=== PATIENT | male | born 1955 | race Caucasian/White ===

== ENCOUNTER 2019-08-13 08:47 | Emergency (ER) | payer MEDICARE, BC ==
--- NOTE | 2019-08-13 08:52 | EDM.PDOC ---
ED HPI GENERAL MEDICAL PROBLEM - General Stated Complaint: COLON ISSUES Time Seen by Provider: 08/13/19 08:51 Source of Information: Reports: Patient History Limitations: Reports: No Limitations - History of Present Illness INITIAL COMMENTS - FREE TEXT/NARRATIVE: HISTORY AND PHYSICAL: History of present illness: Patient is a 64-year-old male who presents to the emergency room with complaints of rectal bleeding. He states this morning after using the bathroom he had noticed some blood on the toilet tissue. He states he does have a long- standing history of constipation due to a pelvic floor dysfunction. Does strain frequently to have a bowel movement. Today he noticed the bleeding and was concerned he had a hemorrhoid, came to the emergency room in hopes of having this removed. He reports he is asymptomatic and offers no other concerns or complaints. Patient denies any fever, chills, headache, change in vision, syncope or near syncope. Denies any chest pain, back pain, shortness of breath or cough. Denies any abdominal pain, nausea, vomiting, diarrhea, constipation or dysuria. Has not noted any blood in urine or stool. Patient has been eating and drinking appropriately. Review of systems: As per history of present illness and below otherwise all systems reviewed and negative. Past medical history: As per history of present illness and as reviewed below otherwise noncontributory. Surgical history: As per history of present illness and as reviewed below otherwise noncontributory. Social history: See social history for further information Family history: As per history of present illness and as reviewed below otherwise noncontributory. Physical exam: General: Well-developed and well-nourished 64-year-old male. Alert and oriented. Nontoxic appearing and in no acute distress. HEENT: Atraumatic, normocephalic, pupils equal and reactive bilaterally, negative for conjunctival pallor or scleral icterus, mucous membranes moist, trachea midline. No drooling or trismus noted. No meningeal signs. No hot potato voice noted. Lungs: Clear to auscultation, breath sounds equal bilaterally, chest nontender. Heart: S1S2, regular rate and rhythm without overt murmur Abdomen: Soft, nondistended, nontender. Negative for masses or hepatosplenomegaly. Negative for costovertebral tenderness. Pelvis: Stable nontender. Genitourinary: Deferred. Rectal: This was done with consent and a smoking tobacco packing machine hand at the bedside. Three hemorrhoids are noted at 11-2 o'clock position. These are not thrombosed, no active bleeding is noted. Good rectal tone. Hemoccult negative. Skin: Intact, warm, dry. No lesions or rashes noted. Extremities: Atraumatic, moves all extremities per self without difficulty or deficits, negative for cords or calf pain. Neurovascular unremarkable. Neuro: Awake, alert, oriented. Cranial nerves II through XII unremarkable. Cerebellum unremarkable. Motor and sensory unremarkable throughout. Exam nonfocal. Notes: Was able to get patient an appointment for tomorrow with Dr Coyle at 1pm for follow up care. Dr Greer did look at the hemorrhoids, agrees with plan of care. Medication and supportive care measures were reviewed and discussed. Voices understanding and is agreeable to plan of care. Denies any further questions or concerns at this time. Diagnostics: None Therapeutics: None Prescription: Lidocaine/Hydrocortisone Gel Impression: Hemorrhoid Plan: 1. Continue to take the Miralax and Stool softener to avoid straining while having a bowel movement. 2. Use the Hydrocortisone Gel and Lidocaine Gel; 1/2 and 1/2 of each medication in the applicator - insert rectally. May use twice daily. 3. Follow up with Dr Coyle, you have an appointment at the [address] [place] [address] at 1pm 4. Return to the ED as needed as discussed. Definitive disposition and diagnosis as appropriate pending reevaluation and review of above. Onset: Today - Related Data Allergies Allergy/AdvReac Type Severity Reaction Status Date / Time No Known Allergies Allergy Verified 08/16/16 23:38 Home Meds: Home Meds Gabapentin [Neurontin] 600 mg PO BID 03/20/15 [History] Aspirin 325 mg PO DAILY 12/02/16 [History] Multivitamin [Multivitamins] 1 tab PO DAILY 12/02/16 [History] Dicyclomine [Bentyl] 20 mg PO QID PRN 08/13/19 [History] Past Medical History HEENT History: Cardiovascular History: Respiratory History: Reports: None Gastrointestinal History: Reports: GERD, Hiatal Hernia Genitourinary History: Reports: None Musculoskeletal History: Reports: Osteoarthritis (left shoulder) Neurological History: Reports: None Other Neuro History: restless leg syndrome Psychiatric History: Reports: None Endocrine/Metabolic History: Reports: None Hematologic History: Reports: None Immunologic History: Reports: None Oncologic (Cancer) History: Reports: None Dermatologic History: Reports: None - Infectious Disease History Infectious Disease History: Reports: Chicken Pox, Measles, Mumps Other Infectious Disease History: childhood - Past Surgical History HEENT Surgical History: Reports: Naso-Sinus Surgery, Oral Surgery, Tonsillectomy Social & Family History - Family History Family Medical History: Noncontributory HEENT: Reports: None Cardiac: Reports: None Respiratory: Reports: None GI: Reports: None - Living Situation & Occupation Living situation: Reports: Single Occupation: Retired ED ROS GENERAL - Review of Systems Review Of Systems: ROS reveals no pertinent complaints other than HPI. ED EXAM, GI/ABD - Physical Exam Exam: See Below (See dictation) Course - Vital Signs Last Recorded V/S: Last Vital Signs Temp 97.3 F 08/13/19 09:03 Pulse 71 08/13/19 09:03 Resp 16 08/13/19 09:03 BP 177/98 H 08/13/19 09:03 Pulse Ox 96 08/13/19 09:03 - Orders/Labs/Meds Orders: Active Orders 24 hr Category Date Time Status Sodium Chloride 0.9% [Normal Saline] 1,000 ml Med 08/13/19 08:59 Active IV STAT Medication Orders Sodium Chloride (Normal Saline) 1,000 mls @ 999 mls/hr IV STAT ONE Stop: 08/13/19 09:59 Meds: Medications Generic Name Dose Route Start Last Admin Trade Name Freq PRN Reason Stop Dose Admin Sodium Chloride 1,000 mls @ 999 mls/hr 08/13/19 08:59 Normal Saline IV 08/13/19 09:59 STAT ONE Discontinued Medications Generic Name Dose Route Start Last Admin Trade Name Freq PRN Reason Stop Dose Admin Sodium Chloride 10 ml 08/13/19 08:59 Saline Flush FLUSH ASDIRECTED PRN Keep Vein Open Sodium Chloride 2.5 ml 08/13/19 08:59 Saline Flush FLUSH ASDIRECTED PRN Keep Vein Open Departure - Departure Time of Disposition: 09:32 Disposition: Home, Self-Care 01 Clinical Impression: Hemorrhoids Qualifiers: Hemorrhoid type: unspecified Qualified Code(s): K64.9 - Unspecified hemorrhoids - Discharge Information Instructions: Hemorrhoids, [id number] Referrals: Elieser Coyle MD [Physician] - 08/14/19 1:00 pm Elsie Lynne MD [Primary Care Provider] - Forms: ED Department Discharge Additional Instructions: The following information is given to patients seen in the emergency department who are being discharged to home. This information is to outline your options for follow-up care. We provide all patients seen in our emergency department with a follow-up referral. The need for follow-up, as well as the timing and circumstances, are variable depending upon the specifics of your emergency department visit. If you don't have a primary care physician on staff, we will provide you with a referral. We always advise you to contact your personal physician following an emergency department visit to inform them of the circumstance of the visit and for follow-up with them and/or the need for any referrals to a consulting specialist. The emergency department will also refer you to a specialist when appropriate. This referral assures that you have the opportunity for follow-up care with a specialist. All of these measure are taken in an effort to provide you with optimal care, which includes your follow-up. Under all circumstances we always encourage you to contact your private physician who remains a resource for coordinating your care. When calling for follow-up care, please make the office aware that this follow-up is from your recent emergency room visit. If for any reason you are refused follow-up, please contact the Emergency Department at and asked to speak to the emergency department charge nurse. Primary Care [address] [place] [address] [id number] [address] Specialty Care - General Surgery [facility] [address] [place] [address], [address] [place] [address] 1. Continue to take the Miralax and Stool softener to avoid straining while having a bowel movement. 2. Use the Hydrocortisone Gel and Lidocaine Gel; 1/2 and 1/2 of each medication in the applicator - insert rectally. May use twice daily. 3. Follow up with Dr Coyle, you have an appointment at the [address] [place] [address] at 1pm. Please arrive to [address] [place] [address] 15 minutes before appointment. Please bring photo ID and insurance cards. Dr. Coyle's office is on the third floor. 4. Return to the ED as needed as discussed. - My Orders Last 24 Hours: My Active Orders 08/13/19 08:59 Sodium Chloride 0.9% [Normal Saline] 1,000 ml IV STAT - Assessment/Plan Last 24 Hours: My Active Orders 08/13/19 08:59 Sodium Chloride 0.9% [Normal Saline] 1,000 ml IV STAT
[2019-08-13] MEDS ORDERED: Sodium Chloride 0.9% 10 ML Syringe FLUSH PRN (08:59)
[2019-08-13] MEDS ORDERED: Sodium Chloride 0.9% 2.5 ML Syringe FLUSH PRN (08:59)
[2019-08-13] MEDS ORDERED: Sodium Chloride 0.9% 1,000 ML IV ONE (08:59)
[2019-08-13 09:48] VITALS: BP 160/64; PULSE 64
== END 2019-08-13 09:46 | disposition home or self-care (01) ==
LOC: MW.ED 08:47
DX: K64.9 Unspecified hemorrhoids (principal); Z79.82 Long term (current) use of aspirin
CPT/HCPCS: 99282; 99283

== ENCOUNTER 2020-02-28 09:07 | Observation (INO) | payer MEDICARE, BC ==
[2020-02-28] MEDS ORDERED: Sodium Chloride 0.9% 1,000 ML IV ONE (09:10)
[2020-02-28] MEDS ORDERED: Sodium Chloride 0.9% 2.5 ML Syringe FLUSH PRN ×2 (09:10)
[2020-02-28] MEDS ORDERED: Sodium Chloride 0.9% 10 ML Syringe FLUSH PRN (09:10)
--- NOTE | 2020-02-28 09:12 | EDM.PDOC ---
ED HPI GENERAL MEDICAL PROBLEM - General Stated Complaint: WEAKNESS Time Seen by Provider: 02/28/20 09:09 - History of Present Illness INITIAL COMMENTS - FREE TEXT/NARRATIVE: History of present illness: Patient presents with generalized weakness that is been going on since last week on Monday. He relates he has had several episodes of black stool he recently had a colonoscopy which was normal in [place] but they did not do an upper GI. He denies being on any blood thinners she has not had this kind of problem before she states his weakness is generalized there is no focal weakness he just feels like he does not have much energy at all. Nothing seems to make it better or worse [] Review of systems: As per history of present illness and below otherwise all systems reviewed and negative. Past medical history: As per history of present illness and as reviewed below otherwise noncontributory. Surgical history: As per history of present illness and as reviewed below otherwise noncontributory. Social history: No reported history of drug or alcohol abuse. Family history: As per history of present illness and as reviewed below otherwise noncontributory. Physical exam: HEENT: Atraumatic, normocephalic, pupils reactive, negative for conjunctival pallor or scleral icterus, mucous membranes moist, throat clear, neck supple, nontender, trachea midline. Lungs: Clear to auscultation, breath sounds equal bilaterally, chest nontender. Heart: S1S2, regular, negative for clicks, rubs, or JVD. Abdomen: Soft, nondistended, nontender. Negative for masses or hepatosplenomegaly. Negative for costovertebral tenderness. Pelvis: Stable nontender. Genitourinary: Deferred. Rectal: There are external and internal hemorrhoids that are nontender no obvious bleeding rectum was empty Hemoccult positive Extremities: Atraumatic, negative for cords or calf pain. Neurovascular unremarkable. Neuro: Awake, alert, oriented. Cranial nerves II through XII unremarkable. Cerebellum unremarkable. Motor and sensory unremarkable throughout. Exam nonfocal. Diagnostics: [] Therapeutics: [] Impression: GI bleed, generalized weakness [] Plan: We will obtain some labs give a fluid bolus and reassess the patient given a dose of 80 mg of Protonix [] Definitive disposition and diagnosis as appropriate pending reevaluation and review of above. - Related Data Allergies Allergy/AdvReac Type Severity Reaction Status Date / Time No Known Allergies Allergy Verified 02/28/20 09:27 Home Meds: Home Meds Gabapentin [Neurontin] 600 mg PO TID 03/20/15 [History] Aspirin 81 mg PO DAILY 12/02/16 [History] Multivitamin [Multivitamins] 1 tab PO DAILY 12/02/16 [History] Dicyclomine [Bentyl] 20 mg PO QID PRN 08/13/19 [History] Past Medical History HEENT History: Cardiovascular History: Respiratory History: Reports: None Gastrointestinal History: Reports: GERD, Hiatal Hernia Genitourinary History: Reports: None Musculoskeletal History: Reports: Osteoarthritis (left shoulder) Neurological History: Reports: None Other Neuro History: restless leg syndrome Psychiatric History: Reports: None Endocrine/Metabolic History: Reports: None Hematologic History: Reports: None Immunologic History: Reports: None Oncologic (Cancer) History: Reports: None Dermatologic History: Reports: None - Infectious Disease History Infectious Disease History: Reports: Chicken Pox, Measles, Mumps Other Infectious Disease History: childhood - Past Surgical History HEENT Surgical History: Reports: Naso-Sinus Surgery, Oral Surgery, Tonsillectomy Social & Family History - Family History Family Medical History: Noncontributory HEENT: Reports: None Cardiac: Reports: None Respiratory: Reports: None GI: Reports: None - Caffeine Use Caffeine Use: Reports: None - Living Situation & Occupation Living situation: Reports: Single Occupation: Retired ED ROS GENERAL - Review of Systems Review Of Systems: See Below ED EXAM, GENERAL - Physical Exam Exam: See Below EKG INTERPRETATION EKG Interpretation Comments: Normal sinus rhythm rate of 84 bpm left bundle branch block which is old no ischemic changes read and interpreted by me Course - Vital Signs Text/Narrative:: Patient was Hemoccult positive his hemoglobin is 8.3 he is hemodynamically stable and not on blood thinners. I discussed the case with Dr. Quarles were at 10:45 AM and she will admit the patient to telemetry was given 80 of Protonix in the ED Last Recorded V/S: Last Vital Signs Temp 35.7 C L 02/28/20 09:25 Pulse 90 02/28/20 09:25 Resp BP 155/71 H 02/28/20 09:25 Pulse Ox 99 02/28/20 09:25 - Orders/Labs/Meds Orders: Active Orders 24 hr Category Date Time Status EKG 12 Lead [EKG Documentation Completion] [RC] STAT Care 02/28/20 09:11 Active TYPE AND SCREEN [BBK] Stat Lab 02/28/20 09:38 Received Sodium Chloride 0.9% [Saline Flush] Med 02/28/20 09:10 Active 10 ml FLUSH ASDIRECTED PRN Sodium Chloride 0.9% [Saline Flush] Med 02/28/20 09:10 Active 2.5 ml FLUSH ASDIRECTED PRN Sodium Chloride 0.9% [Saline Flush] Med 02/28/20 09:10 Active 2.5 ml FLUSH ASDIRECTED PRN Saline Lock Insert [OM.PC] Stat Oth 02/28/20 09:10 Ordered Medication Orders Sodium Chloride (Saline Flush) 2.5 ml FLUSH ASDIRECTED PRN PRN Reason: Keep Vein Open Last Admin: 02/28/20 09:40 Dose: 2.5 ml Sodium Chloride (Saline Flush) 10 ml FLUSH ASDIRECTED PRN PRN Reason: Keep Vein Open Last Admin: 02/28/20 09:40 Dose: 10 ml Sodium Chloride (Saline Flush) 2.5 ml FLUSH ASDIRECTED PRN PRN Reason: Keep Vein Open Last Admin: 02/28/20 09:40 Dose: 2.5 ml Labs: Laboratory Tests 02/28/20 02/28/20 02/28/20 Range/Units 09:16 09:38 09:38 WBC 7.63 (4.0-11.0) K/uL RBC 2.67 L (4.50-5.90) M/uL Hgb 8.3 L (13.0-17.0) g/dL Hct 25.1 L (38.0-50.0) % MCV 94.0 (80.0-98.0) fL MCH 31.1 (27.0-32.0) pg MCHC 33.1 (31.0-37.0) g/dL RDW Std Deviation 49.2 (28.0-62.0) fl RDW Coeff of Lottie 15 (11.0-15.0) % Plt Count 406 H (150-400) K/uL MPV 8.60 (7.40-12.00) fL Neut % (Auto) 60.6 (48.0-80.0) % Lymph % (Auto) 26.5 (16.0-40.0) % Chester % (Auto) 8.4 (0.0-15.0) % Eos % (Auto) 3.8 (0.0-7.0) % Baso % (Auto) 0.7 (0.0-1.5) % Neut # (Auto) 4.6 (1.4-5.7) K/uL Lymph # (Auto) 2.0 (0.6-2.4) K/uL Chester # (Auto) 0.6 (0.0-0.8) K/uL Eos # (Auto) 0.3 (0.0-0.7) K/uL Baso # (Auto) 0.1 (0.0-0.1) K/uL Nucleated RBC % 0.0 /100WBC Nucleated RBCs # 0 K/uL INR APTT (18.6-31.3) SEC Sodium 141 (136-148) mmol/L Potassium 3.9 (3.5-5.1) mmol/L Chloride 106 (98-107) mmol/L Carbon Dioxide 26.6 (21.0-32.0) mmol/L BUN 33 H (7.0-18.0) mg/dL Creatinine 1.1 (0.8-1.3) mg/dL Est Cr Clr Drug Dosing 59.61 mL/min Estimated GFR (MDRD) > 60.0 ml/min Glucose 143 H (74-106) mg/dL Calcium 7.9 L (8.5-10.1) mg/dL Total Bilirubin 0.1 L (0.2-1.0) mg/dL AST 14 L (15-37) IU/L ALT 26 (14-63) IU/L Alkaline Phosphatase 87 (46-116) U/L Total Protein 6.2 L (6.4-8.2) g/dL Albumin 3.4 (3.4-5.0) g/dL Globulin 2.8 (2.6-4.0) g/dL Albumin/Globulin Ratio 1.2 (0.9-1.6) Urine Color YELLOW Urine Appearance HAZY Urine pH 6.5 (5.0-8.0) Ur Specific Lincoln 1.020 (1.001-1.035) Urine Protein NEGATIVE (NEGATIVE) mg/dL Urine Glucose (UA) NEGATIVE (NEGATIVE) mg/dL Urine Ketones NEGATIVE (NEGATIVE) mg/dL Urine Occult Blood NEGATIVE (NEGATIVE) Urine Nitrite NEGATIVE (NEGATIVE) Urine Bilirubin NEGATIVE (NEGATIVE) Urine Urobilinogen 0.2 (<2.0) EU/dL Ur Leukocyte Esterase NEGATIVE (NEGATIVE) Urine RBC 0-1 (0-2/HPF) Urine WBC 0-1 (0-5/HPF) Ur Epithelial Cells RARE (NONE-FEW) Amorphous Sediment LIGHT (NEGATIVE) Urine Bacteria FEW (NEGATIVE) 02/28/20 Range/Units 09:38 WBC (4.0-11.0) K/uL RBC (4.50-5.90) M/uL Hgb (13.0-17.0) g/dL Hct (38.0-50.0) % MCV (80.0-98.0) fL MCH (27.0-32.0) pg MCHC (31.0-37.0) g/dL RDW Std Deviation (28.0-62.0) fl RDW Coeff of Lottie (11.0-15.0) % Plt Count (150-400) K/uL MPV (7.40-12.00) fL Neut % (Auto) (48.0-80.0) % Lymph % (Auto) (16.0-40.0) % Chester % (Auto) (0.0-15.0) % Eos % (Auto) (0.0-7.0) % Baso % (Auto) (0.0-1.5) % Neut # (Auto) (1.4-5.7) K/uL Lymph # (Auto) (0.6-2.4) K/uL Chester # (Auto) (0.0-0.8) K/uL Eos # (Auto) (0.0-0.7) K/uL Baso # (Auto) (0.0-0.1) K/uL Nucleated RBC % /100WBC Nucleated RBCs # K/uL INR 0.96 APTT 23.3 (18.6-31.3) SEC Sodium (136-148) mmol/L Potassium (3.5-5.1) mmol/L Chloride (98-107) mmol/L Carbon Dioxide (21.0-32.0) mmol/L BUN (7.0-18.0) mg/dL Creatinine (0.8-1.3) mg/dL Est Cr Clr Drug Dosing mL/min Estimated GFR (MDRD) ml/min Glucose (74-106) mg/dL Calcium (8.5-10.1) mg/dL Total Bilirubin (0.2-1.0) mg/dL AST (15-37) IU/L ALT (14-63) IU/L Alkaline Phosphatase (46-116) U/L Total Protein (6.4-8.2) g/dL Albumin (3.4-5.0) g/dL Globulin (2.6-4.0) g/dL Albumin/Globulin Ratio (0.9-1.6) Urine Color Urine Appearance Urine pH (5.0-8.0) Ur Specific Lincoln (1.001-1.035) Urine Protein (NEGATIVE) mg/dL Urine Glucose (UA) (NEGATIVE) mg/dL Urine Ketones (NEGATIVE) mg/dL Urine Occult Blood (NEGATIVE) Urine Nitrite (NEGATIVE) Urine Bilirubin (NEGATIVE) Urine Urobilinogen (<2.0) EU/dL Ur Leukocyte Esterase (NEGATIVE) Urine RBC (0-2/HPF) Urine WBC (0-5/HPF) Ur Epithelial Cells (NONE-FEW) Amorphous Sediment (NEGATIVE) Urine Bacteria (NEGATIVE) Meds: Medications Generic Name Dose Route Start Last Admin Trade Name Freq PRN Reason Stop Dose Admin Sodium Chloride 2.5 ml 02/28/20 09:10 02/28/20 09:40 Saline Flush FLUSH 2.5 ml ASDIRECTED PRN Administration Keep Vein Open Sodium Chloride 10 ml 02/28/20 09:10 02/28/20 09:40 Saline Flush FLUSH 10 ml ASDIRECTED PRN Administration Keep Vein Open Sodium Chloride 2.5 ml 02/28/20 09:10 02/28/20 09:40 Saline Flush FLUSH 2.5 ml ASDIRECTED PRN Administration Keep Vein Open Discontinued Medications Generic Name Dose Route Start Last Admin Trade Name Freq PRN Reason Stop Dose Admin Sodium Chloride 1,000 mls @ 999 mls/hr 02/28/20 09:10 02/28/20 09:40 Normal Saline IV 02/28/20 10:10 999 mls/hr BOLUS ONE Administration Pantoprazole Sodium 80 mg/ 10 mls @ 300 mls/hr 02/28/20 09:38 02/28/20 10:06 Sodium Chloride IV 02/28/20 09:39 300 mls/hr NOW ONE Administration Departure - Departure Time of Disposition: 10:47 Disposition: Admitted As Inpatient 64 Condition: Good Clinical Impression: GI bleed Qualifiers: GI bleed type/associated pathology: unspecified gastrointestinal hemorrhage type Qualified Code(s): K92.2 - Gastrointestinal hemorrhage, unspecified - Discharge Information *PRESCRIPTION DRUG MONITORING PROGRAM REVIEWED*: Not Applicable *COPY OF PRESCRIPTION DRUG MONITORING REPORT IN PATIENT SAMIA: Not Applicable Referrals: Elsie Lynne MD [Primary Care Provider] - Sepsis Event Note - Focused Exam Vital Signs: Vital Signs Temp Pulse BP Pulse Ox 02/28/20 09:25 35.7 C L 90 155/71 H 99 Date Exam was Performed: 02/28/20 Time Exam was Performed: 10:46 - My Orders Last 24 Hours: My Active Orders 02/28/20 09:10 Sodium Chloride 0.9% [Saline Flush] 10 ml FLUSH ASDIRECTED PRN Sodium Chloride 0.9% [Saline Flush] 2.5 ml FLUSH ASDIRECTED PRN Sodium Chloride 0.9% [Saline Flush] 2.5 ml FLUSH ASDIRECTED PRN Saline Lock Insert [OM.PC] Stat 02/28/20 09:11 EKG 12 Lead [EKG Documentation Completion] [RC] STAT 02/28/20 09:38 TYPE AND SCREEN [BBK] Stat - Assessment/Plan Last 24 Hours: My Active Orders 02/28/20 09:10 Sodium Chloride 0.9% [Saline Flush] 10 ml FLUSH ASDIRECTED PRN Sodium Chloride 0.9% [Saline Flush] 2.5 ml FLUSH ASDIRECTED PRN Sodium Chloride 0.9% [Saline Flush] 2.5 ml FLUSH ASDIRECTED PRN Saline Lock Insert [OM.PC] Stat 02/28/20 09:11 EKG 12 Lead [EKG Documentation Completion] [RC] STAT 02/28/20 09:38 TYPE AND SCREEN [BBK] Stat
[2020-02-28] MEDS ORDERED: Pantoprazole 80 MG in Sodium Chloride 0.9% 10 ML IV ONE (09:38)
--- NOTE | 2020-02-28 10:03 | CR ---
Chest: Portable view of the chest was obtained. Comparison: No prior chest imaging is available. Heart size and mediastinum are normal. Mild scoliosis is noted within the spine. Lungs are clear with no acute parenchymal change. No acute osseous finding is seen. Impression: 1. Nothing acute is appreciated on portable chest x-ray. Diagnostic code #2 This report was dictated in MDT
[2020-02-28 10:23] LABS: BLOOD UREA NITROGEN,BUN 33 mg/dL (7.0-18.0); CARBON DIOXIDE,CO2 26.6 mmol/L (21.0-32.0); CHLORIDE,CL 106 mmol/L (98-107); GLUCOSE RANDOM 143 mg/dL (74-106); POTASSIUM,K 3.9 mmol/L (3.5-5.1); SODIUM,NA 141 mmol/L (136-148)
--- NOTE | 2020-02-28 11:29 | PCM.HP.2 ---
H&P History of Present Illness - General Date of Service: 02/28/20 Admit Problem/Dx: Admission Diagnosis/Problem Admission Diagnosis/Problem GI bleed not requiring more than 4 units of blood in 24 hours, ICU, or surgery - History of Present Illness Initial Comments - Free Text/Narative: The patient is a 64 year old male who presented to the ER with 1 week of weakness. Patient has associated black stools but no bloody stools. A few months ago he had a colonoscopy and was diagnosed with hemorrhoids. He was supposed to follow up to discuss treatment options but had to reschedule. He has an appt at the end of the month. He had a EGD several years ago and was diagnosed with hiatal hernia. Patient denies hematemesis, excessive NSAID use, alcohol use. He has never had a blood transfusion. He denies fever/chills, chest pain, shortness of breath, or abdominal pain. He does have chronic constipation and GERD. He doesn't take anything for acid reflux. In the ER, work up revealed no leukocytosis but a hemoglobin of 8.3 and positive stool occult. INR and electrolytes wnl. UA was wnl. CXR wnl. EKG showed NSR with old LBBB. In the ER he was given 1 L IV bolus and IV Protonix. PCP- [facility] - Related Data Allergies/Adverse Reactions: Allergies Allergy/AdvReac Type Severity Reaction Status Date / Time No Known Allergies Allergy Verified 02/28/20 09:27 Home Medications: Home Meds Gabapentin [Neurontin] 600 mg PO TID 03/20/15 [History] Aspirin 81 mg PO DAILY 12/02/16 [History] Multivitamin [Multivitamins] 1 tab PO DAILY 12/02/16 [History] Dicyclomine [Bentyl] 20 mg PO QID PRN 08/13/19 [History] Past Medical History HEENT History: Cardiovascular History: Respiratory History: Reports: None Gastrointestinal History: Reports: GERD, Hiatal Hernia Genitourinary History: Reports: None Musculoskeletal History: Reports: Osteoarthritis (left shoulder) Neurological History: Reports: None Other Neuro History: restless leg syndrome Psychiatric History: Reports: None Endocrine/Metabolic History: Reports: None Hematologic History: Reports: None Immunologic History: Reports: None Oncologic (Cancer) History: Reports: None Dermatologic History: Reports: None - Infectious Disease History Infectious Disease History: Reports: Chicken Pox, Measles, Mumps Other Infectious Disease History: childhood - Past Surgical History HEENT Surgical History: Reports: Naso-Sinus Surgery, Oral Surgery, Tonsillectomy Social & Family History - Family History Family Medical History: Noncontributory HEENT: Reports: None Cardiac: Reports: None Respiratory: Reports: None GI: Reports: None - Tobacco Use Smoking Status *Q: Never Smoker - Caffeine Use Caffeine Use: Reports: None - Recreational Drug Use Recreational Drug Use: No - Living Situation & Occupation Living situation: Reports: Single Occupation: Retired H&P Review of Systems - Review of Systems: Review Of Systems: See Below General: Reports: Weakness, Fatigue. Denies: Fever, Chills HEENT: Reports: No Symptoms Pulmonary: Reports: No Symptoms Cardiovascular: Reports: No Symptoms Gastrointestinal: Reports: Black Stool, Constipation. Denies: Abdominal Pain, Bloody Stool, Diarrhea, Hematemesis, Nausea, Vomiting Genitourinary: Reports: No Symptoms Musculoskeletal: Reports: No Symptoms Skin: Reports: No Symptoms Psychiatric: Reports: No Symptoms Neurological: Reports: No Symptoms Hematologic/Lymphatic: Reports: Anemia Immunologic: Reports: No Symptoms Exam - Exam Exam: See Below - Vital Signs Vital Signs: Last Vital Signs Temp 96.3 F L 02/28/20 09:25 Pulse 90 02/28/20 09:25 Resp BP 155/71 H 02/28/20 09:25 Pulse Ox 99 02/28/20 09:25 Weight: 69.6 kg - Exam General: Alert, Oriented Lungs: Clear to Auscultation, Normal Respiratory Effort Cardiovascular: Regular Rate, Regular Rhythm GI/Abdominal Exam: Normal Bowel Sounds, Soft, Non-Tender, No Distention Extremities: No Pedal Edema Skin: Warm, Dry, Intact Psychiatric: Alert, Normal Affect, Normal Mood - Patient Data Lab Results Last 24 hrs: Laboratory Results - last 24 hr 02/28/20 02/28/20 02/28/20 Range/Units 09:16 09:38 09:38 WBC 7.63 (4.0-11.0) K/uL RBC 2.67 L (4.50-5.90) M/uL Hgb 8.3 L (13.0-17.0) g/dL Hct 25.1 L (38.0-50.0) % MCV 94.0 (80.0-98.0) fL MCH 31.1 (27.0-32.0) pg MCHC 33.1 (31.0-37.0) g/dL RDW Std Deviation 49.2 (28.0-62.0) fl RDW Coeff of Lottie 15 (11.0-15.0) % Plt Count 406 H (150-400) K/uL MPV 8.60 (7.40-12.00) fL Neut % (Auto) 60.6 (48.0-80.0) % Lymph % (Auto) 26.5 (16.0-40.0) % Sullivan % (Auto) 8.4 (0.0-15.0) % Eos % (Auto) 3.8 (0.0-7.0) % Baso % (Auto) 0.7 (0.0-1.5) % Neut # (Auto) 4.6 (1.4-5.7) K/uL Lymph # (Auto) 2.0 (0.6-2.4) K/uL Sullivan # (Auto) 0.6 (0.0-0.8) K/uL Eos # (Auto) 0.3 (0.0-0.7) K/uL Baso # (Auto) 0.1 (0.0-0.1) K/uL Nucleated RBC % 0.0 /100WBC Nucleated RBCs # 0 K/uL INR APTT (18.6-31.3) SEC Sodium 141 (136-148) mmol/L Potassium 3.9 (3.5-5.1) mmol/L Chloride 106 (98-107) mmol/L Carbon Dioxide 26.6 (21.0-32.0) mmol/L BUN 33 H (7.0-18.0) mg/dL Creatinine 1.1 (0.8-1.3) mg/dL Est Cr Clr Drug Dosing 59.61 mL/min Estimated GFR (MDRD) > 60.0 ml/min Glucose 143 H (74-106) mg/dL Calcium 7.9 L (8.5-10.1) mg/dL Total Bilirubin 0.1 L (0.2-1.0) mg/dL AST 14 L (15-37) IU/L ALT 26 (14-63) IU/L Alkaline Phosphatase 87 (46-116) U/L Total Protein 6.2 L (6.4-8.2) g/dL Albumin 3.4 (3.4-5.0) g/dL Globulin 2.8 (2.6-4.0) g/dL Albumin/Globulin Ratio 1.2 (0.9-1.6) Urine Color YELLOW Urine Appearance HAZY Urine pH 6.5 (5.0-8.0) Ur Specific [place] 1.020 (1.001-1.035) Urine Protein NEGATIVE (NEGATIVE) mg/dL Urine Glucose (UA) NEGATIVE (NEGATIVE) mg/dL Urine Ketones NEGATIVE (NEGATIVE) mg/dL Urine Occult Blood NEGATIVE (NEGATIVE) Urine Nitrite NEGATIVE (NEGATIVE) Urine Bilirubin NEGATIVE (NEGATIVE) Urine Urobilinogen 0.2 (<2.0) EU/dL Ur Leukocyte Esterase NEGATIVE (NEGATIVE) Urine RBC 0-1 (0-2/HPF) Urine WBC 0-1 (0-5/HPF) Ur Epithelial Cells RARE (NONE-FEW) Amorphous Sediment LIGHT (NEGATIVE) Urine Bacteria FEW (NEGATIVE) Blood Type Antibody Screen Crossmatch 02/28/20 02/28/20 Range/Units 09:38 09:38 WBC (4.0-11.0) K/uL RBC (4.50-5.90) M/uL Hgb (13.0-17.0) g/dL Hct (38.0-50.0) % MCV (80.0-98.0) fL MCH (27.0-32.0) pg MCHC (31.0-37.0) g/dL RDW Std Deviation (28.0-62.0) fl RDW Coeff of Lottie (11.0-15.0) % Plt Count (150-400) K/uL MPV (7.40-12.00) fL Neut % (Auto) (48.0-80.0) % Lymph % (Auto) (16.0-40.0) % Sullivan % (Auto) (0.0-15.0) % Eos % (Auto) (0.0-7.0) % Baso % (Auto) (0.0-1.5) % Neut # (Auto) (1.4-5.7) K/uL Lymph # (Auto) (0.6-2.4) K/uL Sullivan # (Auto) (0.0-0.8) K/uL Eos # (Auto) (0.0-0.7) K/uL Baso # (Auto) (0.0-0.1) K/uL Nucleated RBC % /100WBC Nucleated RBCs # K/uL INR 0.96 APTT 23.3 (18.6-31.3) SEC Sodium (136-148) mmol/L Potassium (3.5-5.1) mmol/L Chloride (98-107) mmol/L Carbon Dioxide (21.0-32.0) mmol/L BUN (7.0-18.0) mg/dL Creatinine (0.8-1.3) mg/dL Est Cr Clr Drug Dosing mL/min Estimated GFR (MDRD) ml/min Glucose (74-106) mg/dL Calcium (8.5-10.1) mg/dL Total Bilirubin (0.2-1.0) mg/dL AST (15-37) IU/L ALT (14-63) IU/L Alkaline Phosphatase (46-116) U/L Total Protein (6.4-8.2) g/dL Albumin (3.4-5.0) g/dL Globulin (2.6-4.0) g/dL Albumin/Globulin Ratio (0.9-1.6) Urine Color Urine Appearance Urine pH (5.0-8.0) Ur Specific [place] (1.001-1.035) Urine Protein (NEGATIVE) mg/dL Urine Glucose (UA) (NEGATIVE) mg/dL Urine Ketones (NEGATIVE) mg/dL Urine Occult Blood (NEGATIVE) Urine Nitrite (NEGATIVE) Urine Bilirubin (NEGATIVE) Urine Urobilinogen (<2.0) EU/dL Ur Leukocyte Esterase (NEGATIVE) Urine RBC (0-2/HPF) Urine WBC (0-5/HPF) Ur Epithelial Cells (NONE-FEW) Amorphous Sediment (NEGATIVE) Urine Bacteria (NEGATIVE) Blood Type O POSITIVE Antibody Screen NEGATIVE Crossmatch See Detail Result Diagrams: 02/28/20 09:38 02/28/20 09:38 Sepsis Event Note - Evaluation Sepsis Screening Result: No Definite Risk - Focused Exam Vital Signs: Vital Signs Temp Pulse BP Pulse Ox 02/28/20 09:25 96.3 F L 90 155/71 H 99 Date Exam was Performed: 02/28/20 Time Exam was Performed: 12:32 Problem List Initiated/Reviewed/Updated: Yes Orders Last 24hrs: Active Orders 24 hr Category Date Time Status Admission Status [Patient Status] [ADT] Stat ADT 02/28/20 10:48 Active Antiembolic Devices [RC] PER UNIT ROUTINE Care 02/28/20 11:25 Ordered EKG 12 Lead [EKG Documentation Completion] [RC] STAT Care 02/28/20 09:11 Active Intake and Output [RC] ASDIRECTED Care 02/28/20 11:25 Ordered Vital Signs [RC] PER UNIT ROUTINE Care 02/28/20 11:25 Ordered Soft Diet [DIET] Diet 02/28/20 Lunch Ordered OCCULT BLOOD DIAGNOSTIC [OP] Stat Lab 02/28/20 11:25 Ordered RED BLOOD CELLS LP [BBK] Stat Lab 02/28/20 11:26 Ordered TROPONIN I [CHEM] Stat Lab 02/28/20 11:25 Ordered TYPE AND SCREEN [BBK] Stat Lab 02/28/20 09:38 Results Sodium Chloride 0.9% [Saline Flush] Med 02/28/20 09:10 Active 10 ml FLUSH ASDIRECTED PRN Sodium Chloride 0.9% [Saline Flush] Med 02/28/20 09:10 Active 2.5 ml FLUSH ASDIRECTED PRN Sodium Chloride 0.9% [Saline Flush] Med 02/28/20 09:10 Active 2.5 ml FLUSH ASDIRECTED PRN Saline Lock Insert [OM.PC] Stat Ot 02/28/20 09:10 Ordered Sequential Compression Device [OM.PC] Stat Ot 02/28/20 11:25 Ordered Transfuse RBC [Transfuse Red Blood Cells] [COMM] Stat Ot 02/28/20 11:27 Ordered Resuscitation Status Stat Resus Stat 02/28/20 11:25 Ordered Medication Orders Sodium Chloride (Saline Flush) 2.5 ml FLUSH ASDIRECTED PRN PRN Reason: Keep Vein Open Last Admin: 02/28/20 09:40 Dose: 2.5 ml Sodium Chloride (Saline Flush) 10 ml FLUSH ASDIRECTED PRN PRN Reason: Keep Vein Open Last Admin: 02/28/20 09:40 Dose: 10 ml Sodium Chloride (Saline Flush) 2.5 ml FLUSH ASDIRECTED PRN PRN Reason: Keep Vein Open Last Admin: 02/28/20 09:40 Dose: 2.5 ml Assessment/Plan Comment:: 1. Admit for observation 2. Code status- Full 3. Vitals per routine 4. I/Os per routine 5. Diet- GI soft 6. DVT prophylaxis with SCDs 7. Symptomatic anemia secondary to likely GI bleed- since he is symptomatic we will transfuse him 1 unit of PRBC. Will obtain stool occult and Hpylori. Will keep on IV PPI. Will consult general surgery. Hold ASA.
[2020-02-28] MEDS ORDERED: Acetaminophen 325 MG Tab PO PRN (11:53)
[2020-02-28] MEDS ORDERED: Ondansetron 4 MG/2 ML SDV IVPUSH PRN (11:53)
--- NOTE | 2020-02-28 14:45 | PCM.SN.2 ---
- Free Text/Narrative Note: Pt seen, chart reviewed; 1) request colonoscopy report from [facility], and EGD report from [facility]; 2) GI bleeding protocol, txf H/H to above 10, avoid anticoag, strict i/o and monitor Urine output, 2 large bore IV acces will follow pt w you; [id number]
--- NOTE | 2020-02-28 19:48 | CONS ---
DATE OF CONSULTATION: 02/28/2020 DATE OF : 1955 PRIMARY CARE PHYSICIAN: KAMRAN URIBE MD REASON FOR CONSULTATION: Consult was called, the patient is seen shortly after. Consulting question is anemia with black tarry stool. HISTORY OF PRESENT ILLNESS: The patient is a 64-year-old gentleman and complained over 1-week history of dark colored, chocolate colored stool. The patient also remarked in the last 1 week he is taking something for his constipation and believes that is what constitute the color. The patient denied black stool. He made it very clear it is very dark chocolate color. Denied shortness of breath, denied chest pain, and denied hematuria. The patient has bright red blood per rectum all year long for many many years. He also remarked his last colonoscopy was in [place], and he also had been followed by GI doctor for his hiatal hernia and had EGD done about 2 to 3 years ago in [place]. ALLERGIES: Please refer to nursing for details. MEDICATIONS: Please refer to nursing for details. PAST SURGICAL HISTORY: No abdominal surgery. PAST MEDICAL HISTORY: Denied diabetes, [place], CVA, hypertension. The patient has been worked on by Cardiology and also has been seeing Dr. Larsen for some bundle branch block that he has. PHYSICAL EXAMINATION: GENERAL: A very pleasant gentleman. Smiled, polite, and very cooperative. Very courteous and pleasant young man. HEENT: Normocephalic, atraumatic. Sclerae anicteric. LUNGS: Clear to auscultation. HEART: Regular rate and rhythm. ABDOMEN: Soft, nondistended. No pulsating tender midline abdominal structure. Nontender. Bowel sounds in all 4 quadrants. No surgical scar. No hernia. No mass. LABORATORY DATA: Upon consultation, white count 7.6, H and H of 8.3 and 25.1, platelets are 406. INR is 0.96. BUN is 33, creatinine is 1.1, and potassium is 3.9. IMPRESSION: Anemic and has just had a colonoscopy done in [place] sometime in the last 6 months and is not having any history of NSAID use. The patient also denied black stools, but do have some concern about bright red blood per rectum, although it has been going on for many years per the patient. The patient probably would benefit to have his record sent over to examine the record, and after the record, we will determine whether the patient will need a dual scope or just repeating EGD. At this time of speaking, the patient is not interested to have a colonoscopy repeated. I will wait for medical record. Please request record from [facility] for his latest colonoscopy and also please request procedure report from [facility], for his latest EGD finding, and we will follow the patient with you. For the time being, treat as a gastrointestinal bleeding patient, transfuse to above 10 H and H and strict in and out, monitoring urine output, and avoid anticoagulation and two large-bore IV access. I will follow the patient with you. Thanks for the consult and care of this pleasant gentleman. PARUL / FOSTER /[id number]
[2020-02-28] MEDS: Docusate Sodium 100 MG Cap PO PRN (20:23)
[2020-02-28] MEDS: Pantoprazole 40 MG in Sodium Chloride 0.9% 10 ML IV SCH (20:29)
[2020-02-28] MEDS ORDERED: Furosemide 20 MG/2 ML VIAL IVPUSH ONE ×2 (21:00→23:30)
[2020-02-28] MEDS: Gabapentin 300 MG Cap PO SCH (21:46)
[2020-02-29 04:30] VITALS: PULSE 77
[2020-02-29] MEDS: Gabapentin 300 MG Cap PO SCH (05:52)
[2020-02-29 06:47] LABS: BLOOD UREA NITROGEN,BUN 27 mg/dL (7.0-18.0); CARBON DIOXIDE,CO2 27.5 mmol/L (21.0-32.0); CHLORIDE,CL 105 mmol/L (98-107); GLUCOSE RANDOM 95 mg/dL (74-106); SODIUM,NA 141 mmol/L (136-148)
--- NOTE | 2020-02-29 08:34 | PCM.DCSUM1 ---
Discharge Summary - Hospital Course HPI Initial Comments: Admission Date: 02/28/20 Discharge Date: 02/29/20 Admission Diagnosis: 1. Symptomatic anemia secondary to likely GI bleed Discharge Diagnosis: 1. Symptomatic anemia secondary to likely GI bleed s/p transfusion of 3 units PRBCs- improved Procedures: None Consults: General Surgery Hospital Course: The patient is a 64-year-old male who presented to the ER with 1 week of weakness. Patient has associated black stools but no bloody stools. A few months ago he had a colonoscopy and was diagnosed with hemorrhoids. He does have chronic constipation and GERD. He doesn't take anything for acid reflux. In the ER, work up revealed no leukocytosis but a hemoglobin of 8.3 and positive stool occult. INR and electrolytes wnl. UA was wnl. CXR wnl. EKG showed NSR with old LBBB. In the ER he was given 1 L IV bolus and IV Protonix. He was admitted to the medical floor. He was transfused 3 units of PRBC. With this his hemoglobin improved from 8.3 to 12.6.His ASA was held and he was started on PPI. Dr. Deshpande of general surgery was consulted and recommended outpatient scopes. By day of discharge, patient felt much better and wanted to go home.. Disposition: Home Discharge Condition: vitals stable, tolerating oral diet, ambulating without difficulty, symptom improvement Discharge Instructions: regular diet as tolerated, activity as tolerated, take medications as prescribed. Symptoms to report to physician include fever/chills , chest pain, shortness of breath, abdominal pain, black/bloody stools, erythema , drainage/discharge, or not improving as expected. Discharge Medications: Gabapentin [Neurontin] 600 mg PO TID Multivitamin [Multivitamins] 1 tab PO DAILY Dicyclomine [Bentyl] 20 mg PO QID PRN Pantoprazole Sodium [Protonix] 40 mg PO BID Follow-up: 1. PCP- Dr. Lynne 03/04/20 2. General Surgery- Dr. Deshpande in 1 week 3. Repeat CBC on 03/02/20 - Discharge Data Discharge Date: 02/29/20 Discharge Disposition: Home, Self-Care 01 Condition: Stable - Referral to Home Health Primary Care Physician: Elsie Lynne MD - Patient Summary/Data Consults: Consultations 02/28/20 11:53 Consult to Physician [CONS] Routine - Discharge Plan *PRESCRIPTION DRUG MONITORING PROGRAM REVIEWED*: Not Applicable *COPY OF PRESCRIPTION DRUG MONITORING REPORT IN PATIENT SAMIA: Not Applicable Prescriptions/Med Rec: Pantoprazole Sodium [Protonix] 40 mg PO BID 14 Days #28 tablet. Home Medications: Home Meds Gabapentin [Neurontin] 600 mg PO TID 03/20/15 [History] Multivitamin [Multivitamins] 1 tab PO DAILY 12/02/16 [History] Dicyclomine [Bentyl] 20 mg PO QID PRN 08/13/19 [History] Pantoprazole Sodium [Protonix] 40 mg PO BID 14 Days #28 tablet. 02/29/20 [Rx] Patient Handouts: Gastrointestinal Bleeding Referrals: Elsie Lynne MD [Primary Care Provider] - 03/04/20 1:45 pm - Discharge Summary/Plan Comment DC Time >30 min.: No - Patient Data Vitals - Most Recent: Last Vital Signs Temp 98.5 F 02/29/20 03:27 Pulse 77 02/29/20 03:27 Resp 16 02/29/20 03:27 BP 130/59 L 02/29/20 03:27 Pulse Ox 96 02/29/20 03:27 Weight - Most Recent: 70.1 kg I&O - Last 24 hours: Intake & Output 02/28/20 02/29/20 02/29/20 22:59 06:59 14:59 Intake Total 1247 1901 Output Total 860 975 Balance 387 926 Lab Results - Last 24 hrs: Laboratory Results - last 24 hr 02/28/20 02/28/20 02/28/20 Range/Units 09:16 09:38 09:38 WBC 7.63 (4.0-11.0) K/uL RBC 2.67 L (4.50-5.90) M/uL Hgb 8.3 L (13.0-17.0) g/dL Hct 25.1 L (38.0-50.0) % MCV 94.0 (80.0-98.0) fL MCH 31.1 (27.0-32.0) pg MCHC 33.1 (31.0-37.0) g/dL RDW Std Deviation 49.2 (28.0-62.0) fl RDW Coeff of Lottie 15 (11.0-15.0) % Plt Count 406 H (150-400) K/uL MPV 8.60 (7.40-12.00) fL Neut % (Auto) 60.6 (48.0-80.0) % Lymph % (Auto) 26.5 (16.0-40.0) % [place] % (Auto) 8.4 (0.0-15.0) % Eos % (Auto) 3.8 (0.0-7.0) % Baso % (Auto) 0.7 (0.0-1.5) % Neut # (Auto) 4.6 (1.4-5.7) K/uL Lymph # (Auto) 2.0 (0.6-2.4) K/uL [place] # (Auto) 0.6 (0.0-0.8) K/uL Eos # (Auto) 0.3 (0.0-0.7) K/uL Baso # (Auto) 0.1 (0.0-0.1) K/uL Nucleated RBC % 0.0 /100WBC Nucleated RBCs # 0 K/uL INR APTT (18.6-31.3) SEC Sodium 141 (136-148) mmol/L Potassium 3.9 (3.5-5.1) mmol/L Chloride 106 (98-107) mmol/L Carbon Dioxide 26.6 (21.0-32.0) mmol/L BUN 33 H (7.0-18.0) mg/dL Creatinine 1.1 (0.8-1.3) mg/dL Est Cr Clr Drug Dosing 59.61 mL/min Estimated GFR (MDRD) > 60.0 ml/min Glucose 143 H (74-106) mg/dL Calcium 7.9 L (8.5-10.1) mg/dL Total Bilirubin 0.1 L (0.2-1.0) mg/dL AST 14 L (15-37) IU/L ALT 26 (14-63) IU/L Alkaline Phosphatase 87 (46-116) U/L Troponin I (0.000-0.056) ng/mL Total Protein 6.2 L (6.4-8.2) g/dL Albumin 3.4 (3.4-5.0) g/dL Globulin 2.8 (2.6-4.0) g/dL Albumin/Globulin Ratio 1.2 (0.9-1.6) Urine Color YELLOW Urine Appearance HAZY Urine pH 6.5 (5.0-8.0) Ur Specific [place] 1.020 (1.001-1.035) Urine Protein NEGATIVE (NEGATIVE) mg/dL Urine Glucose (UA) NEGATIVE (NEGATIVE) mg/dL Urine Ketones NEGATIVE (NEGATIVE) mg/dL Urine Occult Blood NEGATIVE (NEGATIVE) Urine Nitrite NEGATIVE (NEGATIVE) Urine Bilirubin NEGATIVE (NEGATIVE) Urine Urobilinogen 0.2 (<2.0) EU/dL Ur Leukocyte Esterase NEGATIVE (NEGATIVE) Urine RBC 0-1 (0-2/HPF) Urine WBC 0-1 (0-5/HPF) Ur Epithelial Cells RARE (NONE-FEW) Amorphous Sediment LIGHT (NEGATIVE) Urine Bacteria FEW (NEGATIVE) Blood Type Antibody Screen Crossmatch 02/28/20 02/28/20 02/28/20 Range/Units 09:38 09:38 09:38 WBC (4.0-11.0) K/uL RBC (4.50-5.90) M/uL Hgb (13.0-17.0) g/dL Hct (38.0-50.0) % MCV (80.0-98.0) fL MCH (27.0-32.0) pg MCHC (31.0-37.0) g/dL RDW Std Deviation (28.0-62.0) fl RDW Coeff of Lottie (11.0-15.0) % Plt Count (150-400) K/uL MPV (7.40-12.00) fL Neut % (Auto) (48.0-80.0) % Lymph % (Auto) (16.0-40.0) % [place] % (Auto) (0.0-15.0) % Eos % (Auto) (0.0-7.0) % Baso % (Auto) (0.0-1.5) % Neut # (Auto) (1.4-5.7) K/uL Lymph # (Auto) (0.6-2.4) K/uL [place] # (Auto) (0.0-0.8) K/uL Eos # (Auto) (0.0-0.7) K/uL Baso # (Auto) (0.0-0.1) K/uL Nucleated RBC % /100WBC Nucleated RBCs # K/uL INR 0.96 APTT 23.3 (18.6-31.3) SEC Sodium (136-148) mmol/L Potassium (3.5-5.1) mmol/L Chloride (98-107) mmol/L Carbon Dioxide (21.0-32.0) mmol/L BUN (7.0-18.0) mg/dL Creatinine (0.8-1.3) mg/dL Est Cr Clr Drug Dosing mL/min Estimated GFR (MDRD) ml/min Glucose (74-106) mg/dL Calcium (8.5-10.1) mg/dL Total Bilirubin (0.2-1.0) mg/dL AST (15-37) IU/L ALT (14-63) IU/L Alkaline Phosphatase (46-116) U/L Troponin I < 0.050 (0.000-0.056) ng/mL Total Protein (6.4-8.2) g/dL Albumin (3.4-5.0) g/dL Globulin (2.6-4.0) g/dL Albumin/Globulin Ratio (0.9-1.6) Urine Color Urine Appearance Urine pH (5.0-8.0) Ur Specific [place] (1.001-1.035) Urine Protein (NEGATIVE) mg/dL Urine Glucose (UA) (NEGATIVE) mg/dL Urine Ketones (NEGATIVE) mg/dL Urine Occult Blood (NEGATIVE) Urine Nitrite (NEGATIVE) Urine Bilirubin (NEGATIVE) Urine Urobilinogen (<2.0) EU/dL Ur Leukocyte Esterase (NEGATIVE) Urine RBC (0-2/HPF) Urine WBC (0-5/HPF) Ur Epithelial Cells (NONE-FEW) Amorphous Sediment (NEGATIVE) Urine Bacteria (NEGATIVE) Blood Type O POSITIVE Antibody Screen NEGATIVE Crossmatch See Detail 02/28/20 02/29/20 02/29/20 Range/Units 18:28 06:10 06:10 WBC 8.73 (4.0-11.0) K/uL RBC 4.18 L (4.50-5.90) M/uL Hgb 8.7 L 12.6 L (13.0-17.0) g/dL Hct 26.1 L 37.0 L (38.0-50.0) % MCV 88.5 (80.0-98.0) fL MCH 30.1 (27.0-32.0) pg MCHC 34.1 (31.0-37.0) g/dL RDW Std Deviation 51.3 (28.0-62.0) fl RDW Coeff of Lottie 16 H (11.0-15.0) % Plt Count 341 (150-400) K/uL MPV 8.70 (7.40-12.00) fL Neut % (Auto) 63.8 (48.0-80.0) % Lymph % (Auto) 23.8 (16.0-40.0) % [place] % (Auto) 8.9 (0.0-15.0) % Eos % (Auto) 2.9 (0.0-7.0) % Baso % (Auto) 0.6 (0.0-1.5) % Neut # (Auto) 5.6 (1.4-5.7) K/uL Lymph # (Auto) 2.1 (0.6-2.4) K/uL [place] # (Auto) 0.8 (0.0-0.8) K/uL Eos # (Auto) 0.3 (0.0-0.7) K/uL Baso # (Auto) 0.1 (0.0-0.1) K/uL Nucleated RBC % 0.0 /100WBC Nucleated RBCs # 0 K/uL INR APTT (18.6-31.3) SEC Sodium 141 (136-148) mmol/L Potassium 4.0 (3.5-5.1) mmol/L Chloride 105 (98-107) mmol/L Carbon Dioxide 27.5 (21.0-32.0) mmol/L BUN 27 H (7.0-18.0) mg/dL Creatinine 1.1 (0.8-1.3) mg/dL Est Cr Clr Drug Dosing 59.61 mL/min Estimated GFR (MDRD) > 60.0 ml/min Glucose 95 (74-106) mg/dL Calcium 8.3 L (8.5-10.1) mg/dL Total Bilirubin (0.2-1.0) mg/dL AST (15-37) IU/L ALT (14-63) IU/L Alkaline Phosphatase (46-116) U/L Troponin I (0.000-0.056) ng/mL Total Protein (6.4-8.2) g/dL Albumin (3.4-5.0) g/dL Globulin (2.6-4.0) g/dL Albumin/Globulin Ratio (0.9-1.6) Urine Color Urine Appearance Urine pH (5.0-8.0) Ur Specific [place] (1.001-1.035) Urine Protein (NEGATIVE) mg/dL Urine Glucose (UA) (NEGATIVE) mg/dL Urine Ketones (NEGATIVE) mg/dL Urine Occult Blood (NEGATIVE) Urine Nitrite (NEGATIVE) Urine Bilirubin (NEGATIVE) Urine Urobilinogen (<2.0) EU/dL Ur Leukocyte Esterase (NEGATIVE) Urine RBC (0-2/HPF) Urine WBC (0-5/HPF) Ur Epithelial Cells (NONE-FEW) Amorphous Sediment (NEGATIVE) Urine Bacteria (NEGATIVE) Blood Type Antibody Screen Crossmatch Med Orders - Current: Current Medications Acetaminophen (Tylenol) 650 mg PO Q4H PRN PRN Reason: Pain/Fever Docusate Sodium (Colace) 100 mg PO BID PRN PRN Reason: Constipation Last Admin: 02/28/20 20:23 Dose: 100 mg Gabapentin (Neurontin) 600 mg PO TID [facility] Last Admin: 02/29/20 05:52 Dose: 600 mg Pantoprazole Sodium 40 mg/ (Sodium Chloride) 10 mls @ 300 mls/hr IV BID [facility] Last Admin: 02/28/20 20:29 Dose: 300 mls/hr Ondansetron HCl (Zofran) 4 mg IVPUSH Q4H PRN PRN Reason: Nausea/Vomiting Sodium Chloride (Saline Flush) 2.5 ml FLUSH ASDIRECTED PRN PRN Reason: Keep Vein Open Last Admin: 02/28/20 09:40 Dose: 2.5 ml Sodium Chloride (Saline Flush) 10 ml FLUSH ASDIRECTED PRN PRN Reason: Keep Vein Open Last Admin: 02/28/20 09:40 Dose: 10 ml Sodium Chloride (Saline Flush) 2.5 ml FLUSH ASDIRECTED PRN PRN Reason: Keep Vein Open Last Admin: 02/28/20 09:40 Dose: 2.5 ml Discontinued Medications Furosemide (Lasix) 20 mg IVPUSH ONETIME ONE Stop: 02/28/20 21:01 Last Admin: 02/28/20 23:22 Dose: Not Given Furosemide (Lasix) 20 mg IVPUSH ONETIME ONE Stop: 02/28/20 23:31 Last Admin: 02/28/20 23:26 Dose: 20 mg Sodium Chloride (Normal Saline) 1,000 mls @ 999 mls/hr IV BOLUS ONE Stop: 02/28/20 10:10 Last Admin: 02/28/20 09:40 Dose: 999 mls/hr Pantoprazole Sodium 80 mg/ (Sodium Chloride) 10 mls @ 300 mls/hr IV NOW ONE Stop: 02/28/20 09:39 Last Admin: 02/28/20 10:06 Dose: 300 mls/hr
[2020-02-29] MEDS: Pantoprazole 40 MG in Sodium Chloride 0.9% 10 ML IV SCH (08:55)
[2020-02-29] MEDS: Docusate Sodium 100 MG Cap PO PRN (09:03)
[2020-02-29 09:46] VITALS: BP 141/68
== END 2020-02-29 11:30 | disposition home or self-care (01) ==
LOC: MW.ED 09:07 → UNDOADMIN 11:23 → MW.MS 11:23
PROVIDERS: ADMIT Student in an Organized Health Care Education/Training Program; ATTEND Student in an Organized Health Care Education/Training Program
DX: D64.9 Anemia, unspecified (principal); K92.2 Gastrointestinal hemorrhage, unspecified; K59.09 Other constipation; K21.9 Gastro-esophageal reflux disease without esophagitis; I44.7 Left bundle-branch block, unspecified; Z98.890 Other specified postprocedural states; Z79.82 Long term (current) use of aspirin
CPT/HCPCS: 36415; 36430; 71045; 80048; 80053; 81001; 82272; 84484; 85014; 85018; 85025; 85610; 85730; 86850; 86900; 86901; 86920; 86921; 86922; 93005; A9270; C9113; J7030; J7050; P9016; 87338; 96374; 99283; 99285-25

== ENCOUNTER 2020-03-06 06:22 | Day surgery (SDC) | payer MEDICARE, BC ==
[~2020-03-06 06:22] MED LIST: Lactated Ringers 1,000 ML IV SCH
[2020-03-06] MEDS ORDERED: fentaNYL 100 MCG/2 ML SDV ONE (06:58)
[2020-03-06] MEDS ORDERED: Propofol 200 MG/20 ML SDV ONE (06:58)
[2020-03-06] MEDS ORDERED: Midazolam 1 MG/ML 2 ML SDV ONE (06:58)
[2020-03-06] MEDS ORDERED: Glycopyrrolate 0.2 MG/ML SDV ONE (07:00)
[2020-03-06] MEDS ORDERED: Lidocaine 2% 5 ML SDV ONE (07:00)
--- NOTE | 2020-03-06 07:07 | PCM.PREANE ---
Preanesthetic Assessment - Anesthesia/Transfusion/Family Hx Anesthesia History: Prior Anesthesia Without Reaction Family History of Anesthesia Reaction: No Transfusion History: Prior Transfusion Without Reaction Intubation History: Unknown - Review of Systems General: No Symptoms Pulmonary: No Symptoms Cardiovascular: No Symptoms Gastrointestinal: Hematochezia, Melena Neurological: No Symptoms Other: Reports: None - Physical Assessment Vital Signs: Last Vital Signs Temp 36.4 C 03/06/20 06:45 Pulse 64 03/06/20 06:45 Resp 16 03/06/20 06:45 BP 147/72 H 03/06/20 06:45 Pulse Ox 98 03/06/20 06:45 Height: 5 ft 6 in Weight: 69.853 kg ASA Class: 2 Mental Status: Alert & Oriented x3 Airway Class: Mallampati = 2 Dentition: Reports: Normal Dentition, [place](s) (multiple upper front) Thyro-Mental Finger Breadths: 2 Mouth Opening Finger Breadths: 3 ROM/Head Extension: Limited/Partial Lungs: Clear to Auscultation, Normal Respiratory Effort Cardiovascular: Regular Rate, Regular Rhythm - Allergies Allergies/Adverse Reactions: Allergies Allergy/AdvReac Type Severity Reaction Status Date / Time Grain dust Allergy Sneezing Uncoded 03/04/20 08:32 - Blood Blood Available: No - Anesthesia Plan Pre-Op Medication Ordered: None - Acknowledgements Anesthesia Type Planned: MAC Pt an Appropriate Candidate for the Planned Anesthesia: Yes Alternatives and Risks of Anesthesia Discussed w Pt/Guardian: Yes Pt/Guardian Understands and Agrees with Anesthesia Plan: Yes PreAnesthesia Questionnaire HEENT History: Reports: Cataract Other HEENT History: reading glasses, dental implants Cardiovascular History: Reports: Arrhythmia, Other (See Below) Other Cardiovascular History: LBBB Respiratory History: Reports: None Gastrointestinal History: Reports: Chronic Constipation, Colon Polyp, GERD, Hemorrhoids, Hiatal Hernia, Irritable Bowel Syndrome Genitourinary History: Reports: None Musculoskeletal History: Reports: Osteoarthritis Neurological History: Reports: Other (See Below) Other Neuro History: restless leg syndrome Psychiatric History: Reports: Anxiety Endocrine/Metabolic History: Reports: None Hematologic History: Reports: Anemia, Blood Transfusion(s) (3 units last week) Immunologic History: Reports: None Oncologic (Cancer) History: Reports: None Dermatologic History: Reports: None - Infectious Disease History Infectious Disease History: Reports: Chicken Pox, Measles, Mumps Other Infectious Disease History: childhood - Past Surgical History Head Surgeries/Procedures: Reports: None HEENT Surgical History: Reports: Cataract Surgery, Naso-Sinus Surgery, Oral Surgery, Tonsillectomy Other HEENT Surgeries/Procedures: hx sinus surgery, nasal surgery for deviated septum Cardiovascular Surgical History: Reports: None Respiratory Surgical History: Reports: None GI Surgical History: Reports: Colonoscopy (3 months ago), EGD (3 years ago) Male Surgical History: Reports: None Endocrine Surgical History: Reports: None Neurological Surgical History: Reports: None Musculoskeletal Surgical History: Reports: Carpal Tunnel Oncologic Surgical History: Reports: None - SUBSTANCE USE Smoking Status *Q: Never Smoker Recreational Drug Use History: No - HOME MEDS Home Medications: Home Meds Gabapentin [Neurontin] 600 mg PO TID PRN 03/20/15 [History] Multivitamin [Multivitamins] 1 tab PO DAILY 12/02/16 [History] Dicyclomine [Bentyl] 20 mg PO QID PRN 08/13/19 [History] Pantoprazole Sodium [Protonix] 40 mg PO BID 14 Days #28 tablet. 02/29/20 [Rx] Aspirin [Lo-Dose Aspirin EC] 81 mg PO DAILY 03/04/20 [History] Clobetasol [Clobetasol Propionate 0.05%] 1 applic RECTAL ASDIRECTED PRN [History] Cyanocobalamin (Vitamin B12) [Vitamin B12] 1 tab PO DAILY 03/04/20 [History] Dextrin [Fiber] 1 dose PO DAILY 03/04/20 [History] Glycerin 1 supp RECTAL BEDTIME 03/04/20 [History] Lactulose [Cephulac] 15 ml PO DAILY 03/04/20 [History] Lidocaine 5% 1 applic RECTAL ASDIRECTED PRN 03/04/20 [History] polyethylene glycoL 3350 [Miralax] 1 dose PO BID 03/04/20 [History] - CURRENT (IN HOUSE) MEDS Current Meds: Current Medications Lactated Ringer's (Ringers, Lactated) 1,000 mls @ 125 mls/hr IV ASDIRECTED MERRY Discontinued Medications Fentanyl (Sublimaze) Confirm Administered Dose 100 mcg .ROUTE .STK-MED ONE Stop: 03/06/20 06:59 Glycopyrrolate (Robinul) Confirm Administered Dose 0.2 mg .ROUTE .STK-MED ONE Stop: 03/06/20 07:01 Lidocaine (Xylocaine-Mpf 2%) Confirm Administered Dose 5 ml .ROUTE .STK-MED ONE Stop: 03/06/20 07:01 Midazolam HCl (Versed 1 Mg/Ml) Confirm Administered Dose 2 mg .ROUTE .STK-MED ONE Stop: 03/06/20 06:59 Propofol (Diprivan 20 Ml) Confirm Administered Dose 200 mg .ROUTE .STK-MED ONE Stop: 03/06/20 06:59
--- NOTE | 2020-03-06 08:29 | PCM.OPNOTE ---
- General Post-Op/Procedure Note Date of Surgery/Procedure: 03/06/20 Operative Procedure(s): egd w bx Findings: see [id number] Pre Op Diagnosis: anemia Post-Op Diagnosis: Same Anesthesia Technique: Moderate Sedation Primary Surgeon: Ben Deshpande Pathology: egd bx Complications: None Condition: Good
--- NOTE | 2020-03-06 08:49 | PCM48HPAN ---
Post Anesthesia Note - EVALUATION WITHIN 48HRS OF ANESTHETIC Vital Signs in Normal Range: Yes Patient Participated in Evaluation: Yes Respiratory Function Stable: Yes Airway Patent: Yes Cardiovascular Function Stable: Yes Hydration Status Stable: Yes Pain Control Satisfactory: Yes Nausea and Vomiting Control Satisfactory: Yes Mental Status Recovered: Yes Vital Signs: Last Vital Signs Temp 36.4 C 03/06/20 08:17 Pulse 67 03/06/20 08:32 Resp 14 03/06/20 08:32 BP 120/71 03/06/20 08:32 Pulse Ox 97 03/06/20 08:32 - COMMENTS/OBSERVATIONS Free Text/Narrative:: No anesthesia problems
--- NOTE | 2020-03-06 08:49 | PCM.POSTAN ---
POST ANESTHESIA ASSESSMENT - MENTAL STATUS Mental Status: Alert, Oriented - VITAL SIGNS Vital Signs: Last Vital Signs Temp 36.4 C 03/06/20 08:17 Pulse 67 03/06/20 08:32 Resp 14 03/06/20 08:32 BP 120/71 03/06/20 08:32 Pulse Ox 97 03/06/20 08:32 - RESPIRATORY Respiratory Status: Respiratory Rate WNL, Airway Patent, O2 Saturation Stable - CARDIOVASCULAR CV Status: Pulse Rate WNL, Blood Pressure Stable - GASTROINTESTINAL GI Status: No Symptoms - PAIN Pain Score: 0 - POST OP HYDRATION Hydration Status: Adequate & Stable - OBSERVATIONS Free Text/Narrative:: No anesthesia problems
[2020-03-06 09:01] VITALS: BP 122/68; PULSE 63
--- NOTE | 2020-03-06 10:05 | OR ---
SURGEON: Ben Deshpande MD DATE OF PROCEDURE: 03/06/2020 PREOPERATIVE DIAGNOSIS: Anemic, requiring blood transfusion. POSTOPERATIVE DIAGNOSIS: Anemic, requiring blood transfusion. PROCEDURE PERFORMED: Esophagogastroduodenoscopy with biopsy. PRIMARY SURGEON: Ben Deshpande MD COMPLICATIONS: None. DESCRIPTION OF PROCEDURE: EGD: The patient was taken to the endoscopy room, and with the RESEARCH METHODOLOGIST, Diprivan was administered. A well-lubricated EGD scope was gently inserted through the oropharynx, down the esophagus, passing through the gastroesophageal junction, into the stomach. The mucosa was examined upon the passage. Any etiology will be noted. Once in the stomach, we continued to advance to the distal antrum, passed through the pylorus into the second portion of the duodenum. Again, the mucosa was examined for any abnormality and etiology. The scope was then retrieved back to the stomach and then retroflexed to look at the fundus of the stomach. If a biopsy was indicated, we will biopsy the antrum, body, and gastroesophageal junction. The air will be sucked out while the scope is retrieved to reduce the patient's discomfort. The patient tolerated the procedure well. There were no intraoperative complications. Dr. Deshpande was present through the whole procedure. Prior to surgery, a time-out had been called, the patient identified, procedure identified and antibiotic administered. FINDINGS: 1. The patient is easily sedated with RESEARCH METHODOLOGIST and Diprivan, the patient is soundly snoring. 2. Oropharynx and proximal esophagus are free of disease, stricture, inflammation, ulceration, none of those, and distal esophagus at GE junction at 40 has mild salmon-colored change, suggests mild acid reflux. Stomach rugae is normal in appearance. Antrum has some area, a little bit inflamed, suggests gastritis and there is no food particle, bile, or blood observed. Duodenum is grossly normal. Retroflexed look at the fundus, stomach, the patient has a mild hiatal hernia, very mild. No other etiology. Biopsy done at antrum, body, GE junction at 40, and sucked out the gas while scope coming out. PARUL / FOSTER /[id number]
== END 2020-03-06 09:25 | disposition home or self-care (01) ==
LOC: MW.SDS 06:22
PROVIDERS: ATTEND Surgery
DX: K29.50 Unspecified chronic gastritis without bleeding (principal); K44.9 Diaphragmatic hernia without obstruction or gangrene; D64.9 Anemia, unspecified; R06.83 Snoring; K21.9 Gastro-esophageal reflux disease without esophagitis; F41.9 Anxiety disorder, unspecified; E66.3 Overweight; Z20.828 Contact with and (suspected) exposure to other viral communicable diseases; Z79.82 Long term (current) use of aspirin; Z91.048 Other nonmedicinal substance allergy status; Z79.899 Other long term (current) drug therapy; Z68.24 Body mass index [BMI] 24.0-24.9, adult
CPT/HCPCS: 43239; 88305; 88312; J2001; J2250; J2704; J3010; J3490; J7120; 00731

== ENCOUNTER 2023-12-19 08:58 | Emergency (ER) | payer MEDICARE, BC ==
[2023-12-19] MEDS: Alum Hydro/Mag Hydro/Simeth XS 15 ML, Lidocaine 2% 5 ML PO ONE (10:03)
[2023-12-19] MEDS: Ondansetron 4 MG/2 ML SDV IVPUSH ONE (10:03)
[2023-12-19] MEDS: Sodium Chloride 0.9% 1,000 ML IV ONE (10:03)
[2023-12-19 10:05] LABS: BASOPHILS PERCENT AUTO 0.3 % (0.0-1.0); EOSINOPHILS ABSOLUTE AUTO 0.02 K/uL (0.00-0.45); EOSINOPHILS PERCENT AUTO 0.3 % (0.0-6.0); HEMATOCRIT 47.7 % (42.0-52.0); HEMOGLOBIN 16.7 g/dL (14.0-18.0); IMMATURE GRAN PERCENT AUTO 0.3 % (0.0-0.4); LYMPHOCYTES ABSOLUTE AUTO 0.31 K/uL (1.00-4.80); LYMPHOCYTES PERCENT AUTO 4.4 % (24.0-44.0); MEAN CORPUSCULAR HEMOGLOBIN 30.6 pg (28.0-32.0); MEAN CORPUSCULAR VOLUME 87.5 fL (83.0-99.0); MEAN PLATELET VOLUME 8.5 fL (9.4-12.4); MONOCYTES ABSOLUTE AUTO 0.38 K/uL (0.00-0.80); MONOCYTES PERCENT AUTO 5.4 % (0.0-8.0); NEUTROPHILS ABSOLUTE AUTO 6.34 K/uL (1.80-7.70); NEUTROPHILS PERCENT AUTO 89.3 % (41.0-71.0); PLATELET COUNT,PLT 287 K/uL (150-400); RED BLOOD CELL COUNT 5.45 M/uL (4.52-5.90); WHITE BLOOD CELL COUNT,WBC 7.09 K/uL (3.9-11.3)
[2023-12-19 10:06] LABS: BASOPHILS ABSOLUTE AUTO 0.02 K/uL (0.00-0.20); IMMATURE GRAN ABSOLUTE AUTO 0.02 K/uL (0.00-0.05)
[2023-12-19 10:38] LABS: ALBUMIN 3.7 g/dL (3.4-5.0); CALCIUM 8.9 mg/dL (8.5-10.1); CARBON DIOXIDE,CO2 25.8 mmol/L (21.0-32.0); CREATININE 1.2 mg/dL (0.8-1.3); EST CRCL DRUG DOSING (CG) 51.69 mL/min; POTASSIUM,K 3.8 mmol/L (3.5-5.1); PROTEIN TOTAL,TP 7.5 g/dL (6.4-8.2)
[2023-12-19 10:57] LABS: CORONAVIRUS COVID-19 NAA NEGATIVE (NEGATIVE); INFLUENZA A NAA NEGATIVE (NEGATIVE); INFLUENZA B NAA NEGATIVE (NEGATIVE)
[2023-12-19] MEDS: Iopamidol 755 MG/ML 500 ML Multipack Bottle IVPUSH STA (11:19)
[2023-12-19] MEDS: Ciprofloxacin in D5W 400 MG in Premix Bag 1 BAG IV STA (12:12)
[2023-12-19] MEDS: metroNIDAZOLE/Normal Saline 500 MG in Premix Bag 1 BAG IV ONE (12:13)
[2023-12-19 13:42] VITALS: BP 122/70; PULSE 73
== END 2023-12-19 13:48 | disposition home or self-care (01) ==
LOC: MW.ED 08:58
DX: K52.9 Noninfective gastroenteritis and colitis, unspecified (principal); G47.00 Insomnia, unspecified; Z79.899 Other long term (current) drug therapy; Z79.82 Long term (current) use of aspirin
CPT/HCPCS: 0240U; 36415; 71045; 74177; 80053; 83690; 83735; 84484; 85025; 93005; 96361; 96365; 96368; 96375; 99285; A9270; J0744; J1836; J2405; J7030; Q9967; 93010; 99284

== ENCOUNTER 2024-06-19 07:00 | Emergency (ER) | payer MEDICARE, BC ==
[2024-06-19 08:04] LABS: CORONAVIRUS COVID-19 NAA POSITIVE (NEGATIVE); INFLUENZA A NAA NEGATIVE (NEGATIVE); INFLUENZA B NAA NEGATIVE (NEGATIVE); RESPIRATORY SYNCYTIAL VIR NAA NEGATIVE (NEGATIVE)
[2024-06-19] MEDS: Ibuprofen 600 MG Tab PO ONE (08:15)
[2024-06-19] MEDS: Acetaminophen 325 MG Tab PO ONE (08:15)
[2024-06-19] MEDS: Sodium Chloride 0.9% 10 ML Syringe FLUSH PRN (08:16)
[2024-06-19] MEDS: Sodium Chloride 0.9% 1,000 ML IV ONE (08:16)
[2024-06-19] MEDS: Sodium Chloride 0.9% 2.5 ML Syringe FLUSH PRN (08:16)
[2024-06-19 08:25] LABS: BASOPHILS ABSOLUTE AUTO 0.02 K/uL (0.00-0.20); BASOPHILS PERCENT AUTO 0.3 % (0.0-1.0); EOSINOPHILS ABSOLUTE AUTO 0.01 K/uL (0.00-0.45); EOSINOPHILS PERCENT AUTO 0.2 % (0.0-6.0); HEMATOCRIT 42.6 % (42.0-52.0); HEMOGLOBIN 14.8 g/dL (14.0-18.0); IMMATURE GRAN ABSOLUTE AUTO 0.02 K/uL (0.00-0.05); IMMATURE GRAN PERCENT AUTO 0.3 % (0.0-0.4); LYMPHOCYTES ABSOLUTE AUTO 0.71 K/uL (1.00-4.80); MEAN CORPUSCULAR HEMOGLOBIN 30.5 pg (28.0-32.0); MEAN CORPUSCULAR HGB CONC 34.7 g/dL (32.0-36.0); MEAN CORPUSCULAR VOLUME 87.8 fL (83.0-99.0); MEAN PLATELET VOLUME 8.1 fL (9.4-12.4); MONOCYTES ABSOLUTE AUTO 0.86 K/uL (0.00-0.80); MONOCYTES PERCENT AUTO 13.4 % (0.0-8.0); NEUTROPHILS ABSOLUTE AUTO 4.81 K/uL (1.80-7.70); NEUTROPHILS PERCENT AUTO 74.8 % (41.0-71.0); PLATELET COUNT,PLT 259 K/uL (150-400); RED BLOOD CELL COUNT 4.85 M/uL (4.52-5.90); WHITE BLOOD CELL COUNT,WBC 6.43 K/uL (3.9-11.3)
[2024-06-19 08:53] LABS: A/G RATIO 1.1 (0.9-1.6); ALBUMIN 3.8 g/dL (3.4-5.0); BILIRUBIN TOTAL 0.6 mg/dL (0.2-1.0); CALCIUM 9.1 mg/dL (8.5-10.1); CARBON DIOXIDE,CO2 29.8 mmol/L (21.0-32.0); CREATININE 1.3 mg/dL (0.8-1.3); EST CRCL DRUG DOSING (CG) 47.71 mL/min; POTASSIUM,K 4.2 mmol/L (3.5-5.1); PROTEIN TOTAL,TP 7.2 g/dL (6.4-8.2)
[2024-06-19 10:05] VITALS: BP 99/65; PULSE 71
== END 2024-06-19 10:03 | disposition home or self-care (01) ==
LOC: MW.ED 07:00
DX: U07.1 COVID-19 (principal); Z91.09 Other allergy status, other than to drugs and biological substances; Z75.8 Other problems related to medical facilities and other health care
CPT/HCPCS: 0241U; 36415; 71046; 80053; 85025; 96360; 99285; A9270; J3490; J7030; 99284